=== PATIENT | female | born 1985 | race Caucasian/White ===

== ENCOUNTER 2018-07-09 20:18 | Emergency (ER) | payer OTHER ==
[~2018-07-09] VITALS: Ht 165.1 cm; Wt 104.3 kg
[~2018-07-09 20:18] MED LIST: Antivert25 MG PO; CARB50 PO; CODACE30 PO; ESCI10; HYDACE5 PO; IBUP800 PO; METF500; MULVITMINE; NAPR500 PO; ORACON PO; PERM5TC TOP; PROM25 PO; Valium5 MG PO; Verotin-Gr Cap1 EACH PO; Zofran8 MG PO
[2018-07-09] MEDS ORDERED: CYCL10 PO (20:32)
[2018-07-09 20:58] LABS: Appearance, Urine Clear (Clear); Bilirubin, Urine Neg (Neg); Blood, Urine Neg (Neg); Color, Urine Yellow (P-Yellow); Glucose Qualitative, Urine Neg (Neg); Ketones, Urine 1+ (Neg); Leukocyte Esterase, Urine 2+ (Neg); Nitrite, Urine Neg (Neg); Protein, Urine 1+ (Neg); Urobilinogen, Urine NORM (Normal)
[2018-07-09 21:09] LABS: Amorphous Light (0-Heavy); Bacteria Many /hpf; Mucus Light (0-Heavy); Red Blood Cells, Urine Not Seen /hpf (0-2); Squamous Epithelial Cells Mod /hpf (Few)
[2018-07-09 21:14] LABS: BASOPHILS ABSOLUTE AUTO 0.05 K/mm3 (0.00-0.23); BASOPHILS PERCENT AUTO 1 % (0-2); EOSINOPHILS ABSOLUTE AUTO 0.08 K/mm3 (0.00-0.68); EOSINOPHILS PERCENT AUTO 1 % (0-6); Hematocrit 38.7 % (33.0-51.0); Hemoglobin 13.6 g/dL (11.5-16.0); IMMATURE GRAN ABSOLUTE AUTO 0.07 K/mm3 (0.00-0.10); IMMATURE GRAN PERCENT AUTO 1 % (0-1); LYMPHOCYTES ABSOLUTE AUTO 2.72 K/mm3 (0.84-5.20); LYMPHOCYTES PERCENT AUTO 26 % (21-46); MONOCYTES ABSOLUTE AUTO 0.62 K/mm3 (0.16-1.47); MONOCYTES PERCENT AUTO 6 % (4-13); Mean Corpuscular HGB 30.4 pg (26.0-34.0); Mean Corpuscular HGB Conc 35.1 g/dL (31.5-36.5); Mean Corpuscular Volume 87 fL (80-100); Mean Platelet Volume 9.7 fL (9.1-12.4); NEUTROPHILS ABSOLUTE AUTO 6.75 K/mm3 (1.96-9.15); NEUTROPHILS PERCENT AUTO 66 % (41-73); Platelet Count 334 K/mm3 (150-400); RDW Standard Deviation 37.7 fL (35.1-46.3); Red Blood Cell Count 4.47 M/mm3 (3.80-5.20); White Blood Cell Count 10.29 K/mm3 (4.00-11.30)
[2018-07-09 21:33] LABS: Alanine Aminotransfer (ALT/SGP 46 U/L (12-78); Albumin, Blood 4.1 g/dL (3.4-5.0); Albumin/Globulin Ratio 1.1 (0.8-1.8); Alk Phos 64 U/L (50-136); Anion Gap 8 mmol/L (6-16); Aspartate Aminotrans (AST/SGOT 24 U/L (12-37); Bilirubin, Total 0.5 mg/dL (0.1-1.0); Blood Urea Nitrogen 9 mg/dL (8-24); Bun/Creatinine Ratio 15.3 (12.0-20.0); CO2, Blood 24 mmol/L (21-32); Calcium, Blood 8.5 mg/dL (8.5-10.1); Chloride, Blood 107 mmol/L (98-108); Creatinine, Blood 0.59 mg/dL (0.40-1.00); Globulin, Blood 3.9 g/dL (2.2-4.0); Glomerular Filtration Rate >60 (60-); Glucose, Blood 104 mg/dL (70-99); Potassium, Blood 3.8 mmol/L (3.5-5.5); Sodium, Blood 139 mmol/L (136-145)
[2018-07-09] MEDS ORDERED: NAPR550 PO (21:45)
[2018-07-09] MEDS ORDERED: CEPH500 PO (21:45)
[2018-07-09] MEDS ORDERED: COMPAZINE10 MG PO (21:45)
== END 2018-07-09 22:16 | disposition home or self-care (01) ==
LOC: ER 20:18
PROVIDERS: Emergency Medicine
DX: N12 Tubulo-interstitial nephritis, not specified as acute or chronic (principal); K80.20 Calculus of gallbladder without cholecystitis without obstruction
CPT/HCPCS: 36415; 74176; 80053; 81001; 81025; 85025; 87086; 96365; 96375; 99284-25; J0696; J0780; J1200; J1885

== ENCOUNTER → 2022-03-26 | Outpatient (CLI) | payer OTHER ==
[~2022-03-26] MED LIST changes: +ACET325 PO; +Alora1 EAC1 TD; +Amoxicillin875 MG PO; +CEPH500 PO; +COMPAZINE10 MG PO; +CYCL10 PO; +DOC250 PO; +NAPR550 PO
== END | disposition home or self-care (01) ==
LOC: LAB SHORT 18:11
DX: J02.9 Acute pharyngitis, unspecified (principal)
CPT/HCPCS: 87081

== ENCOUNTER 2022-03-28 21:10 | Emergency (ER) | payer OTHER ==
[~2022-03-28] VITALS: Ht 162.6 cm; Wt 106.6 kg
[~2022-03-28 21:10] MED LIST changes: -Amoxicillin875 MG PO
[2022-03-28] MEDS ORDERED: Amoxicillin875 MG PO (21:39)
== END 2022-03-28 21:36 | disposition home or self-care (01) ==
LOC: ER 21:10
DX: H66.92 Otitis media, unspecified, left ear (principal); Z88.5 Allergy status to narcotic agent; Z79.899 Other long term (current) drug therapy
CPT/HCPCS: A9270